=== PATIENT | female | born 1940 | race Caucasian/White ===

== ENCOUNTER → 2021-11-05 09:17 | Outpatient (BNVA) | payer OTHER, MEDICARE, SELFPAY | PROVIDERS: PCP Hospitalist; Visit Provider Psychiatry & Neurology Neurology | DX: G20 Parkinson's disease (principal); F02.80 Dementia in other diseases classified elsewhere, unspecified severity, without behavioral disturbance, psychotic disturbance, mood disturbance, and anxiety; K21.9 Gastro-esophageal reflux disease without esophagitis | CPT/HCPCS: 99212 ==

== ENCOUNTER → 2022-08-11 10:16 | Outpatient (BNVA) | payer OTHER, MEDICARE, SELFPAY | PROVIDERS: PCP Hospitalist; Visit Provider Nurse Practitioner Family | DX: G20 Parkinson's disease (principal) ==

== ENCOUNTER → 2022-11-18 15:09 | Outpatient (BNVA) | payer MEDICARE, OTHER, SELFPAY | PROVIDERS: PCP Hospitalist; Visit Provider Psychiatry & Neurology Neurology | DX: G20 Parkinson's disease (principal); F03.90 Unspecified dementia, unspecified severity, without behavioral disturbance, psychotic disturbance, mood disturbance, and anxiety | CPT/HCPCS: 99212 ==

== ENCOUNTER 2023-05-20 08:56 | Outpatient (AMB) | payer MEDICARE, OTHER, SELFPAY ==
[2023-05-20 09:00] VITALS: BP 112/66; PULSE 87; O2SAT 97; BMI 26.5
--- NOTE | 2023-05-20 09:00 | MHC.OFFVIS ---
Intake Vital Signs 05/20/23 09:00 Height 5 ft 3 in Weight 149 lb 6 oz BMI 26.5 BP 112/66 Blood Pressure Location Lt brachial Position Sitting Pulse 87 Pulse Source Pulse Oximeter Pulse Oximetry (%) 97 Oxygen Delivery Method Nasal Cannula Intake Visit Reasons: 6m follow up-CONFIRMED Intake Note: Pt presents to the office today for a follow up for dementia. Patient is accompanied by her Parminder. Patients states that she is sleeping a lot. Patient states that her dementia has its good and bad days. Allergies No Known Allergies Allergy (Verified 05/20/23 09:02) Medication List - Last Reconciled 05/20/23 by Joan Parrish MD acetaminophen (Tylenol) 325 mg PO QID PRN albuterol sulfate 90 mcg/actuation inhalation apixaban (Eliquis) 5 mg PO BID aspirin 81 mg PO DAILY atorvastatin 80 mg PO DAILY bupropion HCl 150 mg PO QAM carbidopa-levodopa 25-100 mg 1 tab PO QID 90 days cholecalciferol (vitamin D3) 125 mcg PO DAILY diclofenac sodium 1% 4 grams topical QID 30 days donepezil 10 mg PO BEDTIME escitalopram oxalate 10 mg PO DAILY gabapentin 600 mg PO DAILY guaifenesin ER (Mucinex) 1,200 mg PO BID ipratropium-albuterol 0.5 mg-3 mg(2.5 mg base)/3 mL 3 mL inhalation Q4H PRN leflunomide 20 mg PO DAILY mecobalamin (vitamin B12) 1000 mcg memantine 10 mg PO BID multivitamin (Daily Multi-Vitamin tablet) 1 tab PO DAILY omeprazole 20 mg PO DAILY ropinirole 0.25 mg PO BEDTIME sacubitril-valsartan 24-26 mg (Entresto) 1 tab PO BID umeclidinium-vilanterol 62.5-25 mcg/actuation (Anoro Ellipta) 1 inh inhalation Q24H vit C,Q-Ba-klngd-lutein-zeaxan 250-90-40-1 mg (PreserVision AREDS-2) 1 tab PO BID vitamins A,C,M-jpbb-fgnrll 4,296 mcg-226 mg-90 mg (PreserVision AREDS) 1 cap PO BID HPI HPI Comments History of Present Illness Details 82-yr-old female presents for f/u visit.she is stable since her last visit. she was admitted for pneumonia 2 weeks ago . she was very weak and could not stand . she was treated with antibiotics an dis back to baseline. She needs more real estate legal assistant with ADLs.She can get dressed. she uses a walker in her house.she does not help with any patient experience coordinator due to back pain. She is seeing pain management. Denies difficulty swallowing. Denies orthostatic lightheadedness. Occasional constipation- not currently taking anything for this. Tremor are worse- mostly LUE. Having difficulty walking, even with walker- especially around 5pm. Walking is much slower- her usually walks with her. The LLE is not responding to her. No falls Memory is stable - ahs on and off issues Occasionally has benign hallucinations- may see someone out of the corner of her eye. Sleeping well at night. She is exercising at home Pt states she continues to have BLE burning pain on Gabapentin 600mg qhs.( her PCP decreased due to excessive dyatime sleepiness) Pt's current PD medication regimen: CD-LD 1 tab QID. PFSH Medical History Rheumatoid arthritis Osteoporosis GERD (gastroesophageal reflux disease) COPD (chronic obstructive pulmonary disease) Arthritis Social History Alcohol intake: never Patient Tobacco Use Status: Former Tobacco user Quit Date: 25 years Physical Exam Vital Signs: Last Vital Signs Pulse 87 05/20/23 09:00 BP 112/66 05/20/23 09:00 Pulse Ox 97 05/20/23 09:00 Oxygen Delivery Method Nasal Cannula 05/20/23 09:00 BMI result Body Mass Index 26.5 Const General: cooperative and no acute distress Resp Effort & Inspection: normal respiratory effort and able to speak in complete sentences Neuro Other: A&O w/ STM lapses. Expression: Mild decreased expression and blink Voice: Soft voice Tremor: LUE rest and postural tremor Tone: No appreciable rigidity Dyskinesia: None FFM: Mild bradykinesia, more so on left Foot taps: Mild bradykinesia, more so on left Gait: Sitting up right in w/c Psych: Pleasant affect. Assessment & Plan Assessment & Plan (1) Parkinson's disease: Code(s): G20 - Parkinson's disease (2) Dementia: Code(s): F03.90 - Unspecified dementia, unspecified severity, without behavioral disturbance, psychotic disturbance, mood disturbance, and anxiety Plan Carbidopa-Levodopa 25-100mg to 1 tab qid Continue Aricept 10 mg q.d. Continue Namenda 10 mg b.i.d. Continue Gabapentin 600mg qhs. f/u pain management Coding Level of Care Code Est Pt Level 4 (44487) Diagnoses Parkinson's disease G20 Dementia F03.90
== END 2023-05-20 09:22 | disposition home or self-care (01) ==
PROVIDERS: Visit Provider Psychiatry & Neurology Neurology
DX: G20 Parkinson's disease (principal); F03.90 Unspecified dementia, unspecified severity, without behavioral disturbance, psychotic disturbance, mood disturbance, and anxiety
CPT/HCPCS: 99214

== ENCOUNTER → 2023-05-20 08:56 | Outpatient (BNVA) | payer MEDICARE, OTHER, SELFPAY | PROVIDERS: Visit Provider Psychiatry & Neurology Neurology | DX: F03.90 Unspecified dementia, unspecified severity, without behavioral disturbance, psychotic disturbance, mood disturbance, and anxiety (principal); G20.A1 Parkinson's disease without dyskinesia, without mention of fluctuations | CPT/HCPCS: 99212 ==

== ENCOUNTER 2023-12-01 10:44 | Outpatient (AMB) | payer MEDICARE, OTHER, SELFPAY ==
--- NOTE | 2023-12-01 10:43 | A.OFFVIS_ITS ---
Intake Intake Visit Reasons: Behavioral disorder Intake Note: Pt presents for follow up for behavioral changes, auditory hallucinations via telehealth. Allergies No Known Allergies Allergy (Verified 12/01/23 10:45) HPI HPI Comments History of Present Illness Details 82-yr-old female calls for f/u visit.she reports increase in her auditory hallucinations. she hears loud music 3-4 times day and when she tries to sleep and when she wake sup in the morning. It is manageable most of the time but can affect her sleep sometimes. she denies nay visual hallucinations. She needs more program support assistant with ADLs.She can get dressed. she uses a walker in her house.she does not help with any palliative care specialist due to back pain. She is seeing pain management. Denies difficulty swallowing. Denies orthostatic lightheadedness. Occasional constipation- not currently taking anything for this. Tremor are worse- mostly LUE. Having difficulty walking, even with walker- especially around 5pm. Walking is much slower- her usually walks with her. The LLE is not responding to her. No falls Memory is stable - has on and off issues Occasionally has benign hallucinations- may see someone out of the corner of her eye. Sleeping well at night. She is exercising at home Pt states she continues to have BLE burning pain on Gabapentin 600mg qhs.( her PCP decreased due to excessive dyatime sleepiness) Pt's current PD medication regimen: CD-LD 1 tab QID. [facility] Medical History (Updated 12/01/23 @ 13:10 by Joan Parrish MD) Auditory hallucinations Parkinson's disease without dyskinesia Rheumatoid arthritis Osteoporosis GERD (gastroesophageal reflux disease) COPD (chronic obstructive pulmonary disease) Arthritis Social History Alcohol intake: never Patient Tobacco Use Status: Former Tobacco user Quit Date: 25 years Physical Exam Const General: cooperative Orientation/consciousness: patient oriented x3 Neuro Other: normal mood and speech General: patient oriented x3 Assessment & Plan Assessment & Plan (1) Parkinson's disease without dyskinesia: Code(s): G20.A1 - Parkinson's disease without dyskinesia, without mention of fluctuations (2) Dementia: Code(s): F03.90 - Unspecified dementia, unspecified severity, without behavioral disturbance, psychotic disturbance, mood disturbance, and anxiety (3) Auditory hallucinations: Code(s): R44.0 - Auditory hallucinations Plan decrease Carbidopa-Levodopa 25-100mg to 1 tab tid Continue Aricept 10 mg q.d. Continue Namenda 10 mg b.i.d. Continue Gabapentin 600mg qhs. f/u pain management Telehealth Telehealth Location of provider rendering services: practice address Location of patient: address on file Patient Identification confirmed using: Name, : Yes Telehealth method: voice only Patient verbally consented to treatment: Yes Patient verbally consented to billing insurance company: Yes Patient informed of any privacy concerns related to visit: Yes Minutes spent on Phone/Video with Pt.: 13 Coding Level of Care Code Tele Est Pt Level 3 (95310) Diagnoses Parkinson's disease without dyskinesia G20.A1 Dementia F03.90 Auditory hallucinations R44.0 Time Spent (min) 13
== END 2023-12-01 16:00 ==
LOC: HO.HSMS 10:44
PROVIDERS: PCP Hospitalist; Visit Provider Psychiatry & Neurology Neurology
DX: G20.A1 Parkinson's disease without dyskinesia, without mention of fluctuations (principal); F02.82 Dementia in other diseases classified elsewhere, unspecified severity, with psychotic disturbance; R44.0 Auditory hallucinations
CPT/HCPCS: 99442

== ENCOUNTER → 2023-12-01 10:44 | Outpatient (BNVA) | payer MEDICARE, OTHER, SELFPAY | PROVIDERS: PCP Hospitalist; Visit Provider Psychiatry & Neurology Neurology ==

== ENCOUNTER 2024-05-17 08:40 | Outpatient (AMB) | payer MEDICARE, OTHER, SELFPAY ==
--- NOTE | 2024-05-17 08:45 | MHC.OFFVIS ---
Vital Signs 05/17/24 08:46 Height 5 ft 3 in Weight 144 lb BMI 25.5 BP 108/62 Blood Pressure Location Rt brachial Position Sitting Respiration 16 Pulse 69 Pulse Source Pulse Oximeter Pulse Oximetry (%) 99 Oxygen Delivery Method Room Air Intake Visit Reasons: 1 yr f/u appt Intake Note: Pt presents to the office for a 6 month follow up for auditory hallucinations. Auto Service Station Attendant Required: No Allergies No Known Allergies Allergy (Verified 05/17/24 08:46) HPI Comments Details: 83-yr-old female calls for f/u visit. Her auditory hallucinations resolved when she started using her hearing aides.cognition is worse. she walks with walker in the house and uses wheelchair when she goes out.she had a fall 2mths ago in the house. Back pain is better .Needs help with shower and dressing Denies orthostatic lightheadedness. Occasional constipation- not currently taking anything for this. Tremor are same she has mild visual hallucinations especially when she is waking up in the morning - mild and does not bother her. Sleeping well at night and has daytime sleepiness. She is exercising at home Pt states she continues to have BLE burning pain on Gabapentin 600mg qhs.( her PCP decreased due to excessive sleepiness) Pt's current PD medication regimen: CD-LD 1 tab tid. PFSH Medical History Auditory hallucinations Parkinson's disease without dyskinesia Rheumatoid arthritis Osteoporosis GERD (gastroesophageal reflux disease) COPD (chronic obstructive pulmonary disease) Arthritis Social History Alcohol intake: never Patient Tobacco Use Status: Former Tobacco user Physical Exam Vital Signs: Last Vital Signs Pulse 69 05/17/24 08:46 Resp 16 05/17/24 08:46 BP 108/62 05/17/24 08:46 Pulse Ox 99 05/17/24 08:46 Oxygen Delivery Method Room Air 05/17/24 08:46 BMI result Body Mass Index 25.5 Const General: cooperative and no acute distress Resp Effort & Inspection: normal respiratory effort and able to speak in complete sentences Neuro Other: A&O w/ STM lapses. Expression: Mild decreased expression and blink Voice: Soft voice Tremor: no tremors today Tone: No appreciable rigidity Dyskinesia: None FFM: Mild bradykinesia, more so on left Foot taps: Mild bradykinesia, more so on left Gait: Sitting up right in w/c Psych: Pleasant affect. Assessment & Plan Assessment & Plan (1) Parkinson's disease without dyskinesia: Code(s): G20.A1 - Parkinson's disease without dyskinesia, without mention of fluctuations Category: Medical (2) Dementia: Code(s): F03.90 - Unspecified dementia, unspecified severity, without behavioral disturbance, psychotic disturbance, mood disturbance, and anxiety Category: Medical Qualifiers: Dementia type: unspecified type Dementia severity: mild Dementia behavioral or psychological symptom: without behavioral, psychotic, or mood disturbance or anxiety Qualified Code(s): F03.A0 - Unspecified dementia, mild, without behavioral disturbance, psychotic disturbance, mood disturbance, and anxiety Plan decrease Carbidopa-Levodopa 25-100mg to 1 tab tid Continue Aricept 10 mg q.d. Continue Namenda 10 mg b.i.d. Continue Gabapentin 400mg qhs.Try to taper if she has no pain Medications: Changed From carbidopa-levodopa 25-100 mg 1 tab PO QID 90 days 360 tabs 1RF To carbidopa-levodopa 25-100 mg 1 tab PO TID 90 days 270 tabs 1RF Coding Level of Care Code Est Pt Level 4 (75673) Complex EM visit Add On G2211 Diagnoses Parkinson's disease without dyskinesia G20.A1 Mild dementia without behavioral disturbance, psychotic disturbance, mood disturbance, or anxiety, unspecified dementia type F03.A0 Dementia type: unspecified type Dementia severity: mild Dementia behavioral or psychological symptom: without behavioral, psychotic, or mood disturbance or anxiety
[2024-05-17 08:46] VITALS: BP 108/62; PULSE 69; RESP 16; O2SAT 99; BMI 25.5
== END 2024-05-17 09:08 | disposition home or self-care (01) ==
PROVIDERS: PCP Hospitalist; Visit Provider Psychiatry & Neurology Neurology
DX: G20.A1 Parkinson's disease without dyskinesia, without mention of fluctuations (principal); F03.A0 Unspecified dementia, mild, without behavioral disturbance, psychotic disturbance, mood disturbance, and anxiety
CPT/HCPCS: 99214; G2211

== ENCOUNTER → 2024-05-17 08:40 | Outpatient (BNVA) | payer MEDICARE, OTHER, SELFPAY | PROVIDERS: PCP Hospitalist; Visit Provider Psychiatry & Neurology Neurology | DX: G20.A1 Parkinson's disease without dyskinesia, without mention of fluctuations (principal); F03.A0 Unspecified dementia, mild, without behavioral disturbance, psychotic disturbance, mood disturbance, and anxiety | CPT/HCPCS: 99212 ==